=== PATIENT | female | born 1955 | race Caucasian/White ===

== ENCOUNTER → 2017-03-06 | Outpatient (CLI) | payer BC ==
[~2017-03-06] MED LIST: BAYER CHEWABLE81 MG PO; CARVEDILOL6.25 MG PO; COUMADIN 10MG T10 M1 PO; LANOXIN 0.120.125 M1 PO; LASIX 40 MG TAB40 M2 PO; LISINOPRIL20 MG PO; MULTIVITAMINS1 EAC7 PO; POTASSIUM20 PO; PRAVACHOL20 MG PO; VITAMINC500 PO
== END ==
LOC: M.ULTRA 07:30
DX: K82.8 Other specified diseases of gallbladder (principal); D25.9 Leiomyoma of uterus, unspecified; I48.1 Persistent atrial fibrillation; I10 Essential (primary) hypertension; I50.22 Chronic systolic (congestive) heart failure; E78.00 Pure hypercholesterolemia, unspecified; Z79.01 Long term (current) use of anticoagulants

== ENCOUNTER → 2017-03-20 | Outpatient (CLI) | payer BC ==
[2017-03-20 13:19] LABS: CREATININE 0.8 mg/dL (0.6-1.3)
== END ==
LOC: M.LAB 12:00 → M.CT 13:45
PROVIDERS: Internal Medicine
DX: K57.30 Diverticulosis of large intestine without perforation or abscess without bleeding (principal); M47.895 Other spondylosis, thoracolumbar region; D25.9 Leiomyoma of uterus, unspecified; R19.03 Right lower quadrant abdominal swelling, mass and lump

== ENCOUNTER → 2020-09-07 | Outpatient (CLI) | payer BC | LOC: M.RAD 09:00 | PROVIDERS: ATTEND Internal Medicine | DX: Z12.31 Encounter for screening mammogram for malignant neoplasm of breast (principal); Z78.0 Asymptomatic menopausal state ==